=== PATIENT | male | born 1970 | race Caucasian/White ===

== ENCOUNTER 2016-05-05 17:18 | Emergency (ER) | payer MEDICARE, MEDICAID ==
[~2016-05-05] VITALS: Ht 165.1 cm; Wt 131.8 kg
[~2016-05-05 17:18] MED LIST: ACET325T51 PO; AMLO5TAB2 PO; ATOR40TA69 PO; BUME1TAB4 PO; CYCL5TAB PO; DABI75CA3 PO; FURO-128 PO; INSU100I SUBQ; INSU100V4 SUBQ; LOPE2CAP PO; MAGN400T4 PO; METO25TA6 PO; NITR0.4T SL; NOV100I SUBQ; Rocuronium 10 mg/mL 5 mL Inj ONE
[2016-05-05 17:26] VITALS: BP 140/84; PULSE 68; RESP 13; O2SAT 98
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
[2016-05-05 18:01] LABS: BASOPHILS % (AUTO) 0.8 % (0-3); EOSINOPHILS % (AUTO) 4.2 % (0-5); MONOCYTES % (AUTO) 10.1 % (4-12); Mean Corpuscular Hemoglobin 28.5 pg (27.0-35.0); Mean Corpuscular Volume 82.8 fL (81-100); NEUTROPHILS % (AUTO) 62.8 % (40-74); Platelet Count 231 bil/L (150-400)
[2016-05-05 19:53] LABS: APPEARANCE,URINE HAZY (CLEAR,HAZY); COLOR,URINE YELLOW (YELLOW)
[2016-05-05 19:54] LABS: OCCULT BLOOD,URINE SMALL (NEGATIVE); PH,URINE 5.5 (5.0-8.0); UROBILINOGEN,URINE NORMAL (NORMAL)
--- NOTE | 2016-05-05 20:11 | DRSVH ---
PROCEDURE: CT KUB ([id number]) INDICATIONS: r flank/groin pain TECHNIQUE: Noncontrast 5 mm thick sections acquired from the diaphragms to the symphysis. 5 mm thick coronal an d sagittal reformats were then performed. For radiation dose reduction, the following was used: aut omated exposure control, adjustment of mA and/or kV according to patient size. COMPARISON: None. FINDINGS: Image quality: Excellent. Lung bases: Lung bases are clear. Heart size is normal. Atherosclerotic calcifications noted in the visualized left coronary vasculature. Urinary system: Both kidneys are normal in size. No kidney stones. No hydronephrosis or perinephri c fat stranding. Both ureters appear non-dilated throughout their expected courses. Bladder wall th ickness is normal; no calcified bladder stones. Other solid organs: Liver and spleen are normal in size. Gallbladder is within normal limits. Panc reas is normal in contours. Fatty atrophy of the pancreas is noted. No adrenal nodules. Peritoneum and bowel: Unenhanced bowel loops demonstrate normal wall thickness and caliber. No free fluid or air. Appendix is normal. Nodes and vessels: No retroperitoneal or mesenteric adenopathy by size criteria. Aorta and inferior vena cava are normal in caliber. Scattered atherosclerotic calcifications are noted in the abdominal and pelvic musculature. Abdominal wall: No ventral hernias. Pelvis: No free pelvic fluid. 1.4 cm short axis bilateral common femoral lymph nodes are noted. 1.6 cm short axis right groin lymph node is noted. 1.5 cm short axis left groin lymph node noted. Bones: No suspicious bony lesions. No vertebral body compression fractures. Spine degenerative disc disease and facet arthropathy are noted. IMPRESSION: 1. No renal stone or hydronephrosis. 2. The appendix is normal. 3. No free fluid or air. 4. No dilated loops of bowel. 5. Bilateral common femoral and groin lymphadenopathy which could be reactive or neoplastic. 6. Atherosclerosis including the visualized coronary vasculature. Dictated by: Blank Riddle MD, PhD on 05/05/2016 at 20:04 Approved by: Blank Riddle MD, PhD on 05/05/2016 at 20:09
[2016-05-05 23:02] VITALS: BP 147/85; PULSE 54; RESP 16; O2SAT 99
== END 2016-05-05 22:58 | disposition home or self-care (01) ==
LOC: SED 17:18 → EDBD 17:18 → SED 22:58
DX: N17.9 Acute kidney failure, unspecified (principal); R10.31 Right lower quadrant pain; E11.22 Type 2 diabetes mellitus with diabetic chronic kidney disease; I12.9 Hypertensive chronic kidney disease with stage 1 through stage 4 chronic kidney disease, or unspecified chronic kidney disease; E78.5 Hyperlipidemia, unspecified; Z79.4 Long term (current) use of insulin; Z88.1 Allergy status to other antibiotic agents; Z88.5 Allergy status to narcotic agent